=== PATIENT | male | born 1930 | race Caucasian/White ===

== ENCOUNTER 2017-06-12 18:34 | Inpatient (IN) | payer MEDICARE, BC ==
[2017-06-12] MEDS ORDERED: Diphth/Teta/Acell Pertusis* 0.5 ML VIAL ** FOR 6 WKS TO 7 YRS OLD IM ONE (19:40)
[2017-06-12 20:40] LABS: Albumin 3.8 g/dL (3.2-5.2); BUN/Creatinine Ratio 33.9 (8-20); Calcium 9.1 mg/dL (8.6-10.3); EGFR African American 177.9 (>60); EGFR Non-African American 138.3 (>60); Globulin 2.7 g/dL (2-4); Potassium 3.9 mmol/L (3.5-5.0); Total Bilirubin 0.9 mg/dL (0.2-1.0); Total Protein 6.5 g/dL (6.4-8.9)
[2017-06-12 20:41] LABS: Troponin I 0.01 ng/mL (<0.04)
--- NOTE | 2017-06-12 20:56 | RAD ---
INDICATION: Head injury. COMPARISON: There are no prior studies available for comparison. TECHNIQUE: Contiguous axial sections of the brain were obtained from the skull base to the vertex without contrast. FINDINGS: The ventricles, cisterns and sulci are enlarged consistent with age-related atrophy. No significant focal abnormality or mass effect is seen. There is no evidence for hemorrhage. No significant focal osseous abnormality is seen. The visualized portion of the paranasal sinuses and mastoid air cells appear clear. IMPRESSION: NO EVIDENCE FOR ACUTE INTRACRANIAL ABNORMALITY.
[2017-06-12 21:14] LABS: Hematocrit 32 % (42-52); Hemoglobin 10.1 g/dl (14.0-18.0); Mean Corpuscular HGB Conc 32 g/dl (31-36); Mean Corpuscular Hemoglobin 29 pg (27-31); Mean Corpuscular Volume 90 fL (80-94); Mean Platelet Volume 10 um3 (7.4-10.4); Red Blood Count 3.52 10^6/ul (4.0-5.4); Red Cell Distribution Width 13 % (10.5-15); White Blood Count 11.5 10^3/ul (3.5-10.8)
--- NOTE | 2017-06-12 21:15 | RAD ---
INDICATION: Trauma bilateral hip pain. COMPARISON: There are no prior studies available for comparison. TECHNIQUE: An AP view of the pelvis and frontal and lateral views of both hips were obtained. FINDINGS: The bones are normal alignment. No fracture is seen. 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 IMPRESSION: NO EVIDENCE FOR FRACTURE, IF THE PATIENT'S SYMPTOMS PERSIST RECOMMEND FOLLOW-UP IMAGING.
--- NOTE | 2017-06-12 21:17 | RAD ---
INDICATION: Left femur injury. TECHNIQUE: 2 views of the left femur were obtained. FINDINGS: The bones are normal alignment. No fracture is seen. IMPRESSION: NO EVIDENCE FOR FRACTURE.
[2017-06-12] MEDS ORDERED: NS 0.9% 1000 ML* 1,000 ML IV ONE (21:38)
--- NOTE | 2017-06-12 22:21 | RAD ---
INDICATION: Right hip fracture. COMPARISON: Comparison is made with a prior x-ray study of the hips of the same date. TECHNIQUE: Contiguous axial sections were obtained through the pelvis without intravenous or oral contrast. Images were reconstructed in the coronal and sagittal planes. FINDINGS: The bones are osteoporotic. There is a comminuted fracture of the left acetabulum. The fracture extends through the anterior and medial queen. There is slight medial displacement of the medial wall. There is focal increased density along the medial aspect of the acetabulum consistent with a hematoma in an extraperitoneal location measuring 5.7 x 2.6 cm in size. This causes mild mass effect on the urinary bladder. There also appears to be a hairline nondisplaced fracture of the left inferior pubic ramus. The femurs appear intact. The visualized portion of the small bowel and colon appear nondistended. There appear to be small calcified gallstones visualized in the inferior portion of the gallbladder. No significant enlarged pelvic or renal lymph nodes are seen. No free intraperitoneal air or fluid is seen. IMPRESSION: 1. COMMINUTED DISPLACED FRACTURE OF THE LEFT ACETABULUM. 2. NONDISPLACED FRACTURE OF THE LEFT INFERIOR PUBIC RAMUS. 3. SMALL PELVIC HEMATOMA. 4. CHOLELITHIASIS.
--- NOTE | 2017-06-12 23:28 | ED ---
Inga Skinner SooYoung, scribed for Leroy Toney on 06/12/17 at 1926 . Lower Extremity - HPI Summary HPI Summary: An 87 y/o M presents to ED after a fall onset approximately 1030. Associated sx : hip pain L worse than R, multiple ecchymosis to bilat UE, lac to LUE at elbow , lac to RUE at elbow. Denies CP, backpain. Pt did hit his head but denies LOC. Pt lives with , and his son lives nearby. Son states pt's balance has been a little worse than normal recently. Last tetanus is unknown. 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 Mechanism Of Injury: Fall From A Standing Position Onset of Pain: Post Accident, Prior to Arrival Onset/Duration: Still Present Severity Initially: Moderate Severity Currently: Severe Pain Intensity: 10 Pain Scale Used: 0-10 Numeric Timing: Constant Location: Is Discrete @ - hips Associated Signs And Symptoms: Positive: Bruising, Other - lac to bilat elbows - Allergies/Home Medications Allergies/Adverse Reactions: Allergies Allergy/AdvReac Type Severity Reaction Status Date / Time No Known Allergies Allergy Verified 06/12/17 19:15 Home Medications: Home Medications Albuterol HFA INHALER* [Ventolin HFA Inhaler*] 2 puff INH Q4H PRN 06/12/17 [ History Confirmed 06/12/17] Ibuprofen-Diphenhydramine Citr [Advil Pm] 1 tab PO DAILY PRN 06/12/17 [History Confirmed 06/12/17] Ipratropium 0.5MG/2.5ML NEB* [Atrovent 0.5 MG NEB.MALENA*] 0.5 mg INH Q6H PRN 06/12 [History Confirmed 06/12/17] PMH/Surg Hx/FS Hx/Imm Hx Previously Healthy: No Respiratory History: Reports: Hx Chronic Obstructive Pulmonary Disease (COPD), Other Respiratory Problems/Disorders - COPD,JIGNESH COMPLEX- LEFT LUNG. RT PNEUMONIA 12/2016 Sensory History: Reports: Hx Cataracts, Hx Contacts or Glasses - GLASSES, Hx Hearing Aid - BILATERAL Opthamlomology History: Reports: Hx Cataracts, Hx Contacts or Glasses - GLASSES - Surgical History Surgery Procedure, Year, and Place: CATARACTS REMOVED [place]IL[place] [facility] [place]ERNIA [place]PAIR- [facility] [place]. APPENDECTOMY-. DEVIATED SEPTUM X 2 Hx Anesthesia Reactions: No - Immunization History Date of Tetanus Vaccine: utd Date of Influenza Vaccine: utd Infectious Disease History: No Infectious Disease History: Denies: Traveled Outside the [place] in Last 30 Days - Family History Known Family History: Negative: Other - neg: anaesthesia reaction - Social History Occupation: Retired Lives: With Family Alcohol Use: Daily Alcohol Amount: 1 GLASS OF WINE WITH DINNER Hx Substance Use: No Substance Use Type: Reports: None Hx Tobacco Use: Yes Smoking Status (MU): Light Every Day Tobacco Smoker Amount Used/How Often: PIPE X 70 YEARS Review of Systems Negative: Fever Negative: Chest Pain Positive: Arthralgia - bilat hip pain. Negative: Other - neg: leticia pain Positive: Bruising - bilat UE, Other - lac to bilat elbows All Other Systems Reviewed And Are Negative: Yes Physical Exam Triage Information Reviewed: Yes Vital Signs On Initial Exam: Initial Vitals Temp Pulse Resp BP Pulse Ox 99.3 F 75 25 150/62 94 06/12/17 19:05 06/12/17 19:05 06/12/17 19:05 06/12/17 19:05 06/12/17 19:05 Vital Signs Reviewed: Yes Appearance: Positive: Well-Appearing, No Pain Distress Skin: Positive: Warm, Skin Color Reflects Adequate Perfusion, Dry, Other - Lac to L elbow approx 4cm; Lac to R forearm approx 3cm Head/Face: Positive: Normal Head/Face Inspection Eyes: Positive: EOMI, THA ENT: Positive: Normal ENT inspection Neck: Positive: Supple, Nontender Respiratory/Lung Sounds: Positive: Clear to Auscultation, Breath Sounds Present Cardiovascular: Positive: RRR, Pulses are Symmetrical in both Upper and Lower Extremities Abdomen Description: Positive: Nontender, Soft Bowel Sounds: Positive: Present Musculoskeletal: Positive: Other - Tenderness to pelvis Neurological: Positive: Normal, Sensory/Motor Intact, Alert, Oriented to Person Place, Time - Jonathan Coma Scale Coma Scale Total: 15 Diagnostics - Vital Signs Vital Signs Temp Pulse Resp BP Pulse Ox 06/12/17 19:11 99.3 F 76 23 137/29 95 06/12/17 19:05 99.3 F 75 25 150/62 94 - Laboratory Lab Results: Lab Results 06/12/17 06/12/17 06/12/17 Range/Units 20:12 20:12 21:08 WBC 11.5 H (3.5-10.8) 10^3/ul RBC 3.52 L (4.0-5.4) 10^6/ul Hgb 10.1 L (14.0-18.0) g/dl Hct 32 L (42-52) % MCV 90 (80-94) fL MCH 29 (27-31) pg MCHC 32 (31-36) g/dl RDW 13 (10.5-15) % Plt Count 151 (150-450) 10^3/ul MPV 10 (7.4-10.4) um3 Neut % (Auto) 87.4 H (38-83) % Lymph % (Auto) 4.4 L (25-47) % Baxter % (Auto) 7.9 (1-9) % Eos % (Auto) 0 (0-6) % Baso % (Auto) 0.3 (0-2) % Absolute Neuts (auto) 10.0 H (1.5-7.7) 10^3/ul Absolute Lymphs (auto) 0.5 L (1.0-4.8) 10^3/ul Absolute Monos (auto) 0.9 H (0-0.8) 10^3/ul Absolute Eos (auto) 0 (0-0.6) 10^3/ul Absolute Basos (auto) 0 (0-0.2) 10^3/ul Absolute Nucleated RBC 0.01 10^3/ul Nucleated RBC % 0.1 INR (Anticoag Therapy) 0.97 (0.89-1.11) APTT 31.6 (26.0-36.3) seconds Sodium 129 L (133-145) mmol/L Potassium 3.9 (3.5-5.0) mmol/L Chloride 95 L (101-111) mmol/L Carbon Dioxide 28 (22-32) mmol/L Anion Gap 6 (2-11) mmol/L BUN 19 (6-24) mg/dL Creatinine 0.56 L (0.67-1.17) mg/dL Est GFR ( Amer) 177.9 (>60) Est GFR (Non-Af Amer) 138.3 (>60) BUN/Creatinine Ratio 33.9 H (8-20) Glucose 151 H (70-100) mg/dL Calcium 9.1 (8.6-10.3) mg/dL Magnesium 2.0 (1.9-2.7) mg/dL Total Bilirubin 0.90 (0.2-1.0) mg/dL AST 19 (13-39) U/L ALT 17 (7-52) U/L Alkaline Phosphatase 61 (34-104) U/L Troponin I 0.01 (<0.04) ng/mL Total Protein 6.5 (6.4-8.9) g/dL Albumin 3.8 (3.2-5.2) g/dL Globulin 2.7 (2-4) g/dL Albumin/Globulin Ratio 1.4 (1-3) Result Diagrams: 06/12/17 21:08 06/12/17 20:12 Lab Statement: Any lab studies that have been ordered have been reviewed, and results considered in the medical decision making process. - Radiology HIPS XR Xray Interpretation: No Acute Changes - IMPRESSION: No evidence for fx. If sx persist, recommend follow-up imaging. Radiology Interpretation Completed By: Radiologist L Femur XR Xray Interpretation: No Acute Changes - IMPRESSION: No evidence for fx. Radiology Interpretation Completed By: Radiologist - CT BRAIN CT CT Interpretation: No Acute Changes - IMPRESSION: No evidence for acute intracranial abnormality. CT Interpretation Completed By: Radiologist PELVIS CT Interpretation: Positive (See Comments) - IMPRESSION: 1. COMMINUTED DISPLACED FRACTURE OF THE LEFT ACETABULUM. 2. NONDISPLACED FRACTURE OF THE LEFT INFERIOR PUBIC RAMUS. 3. SMALL PELVIC HEMATOMA. 4. CHOLELITHIASIS. CT Interpretation Completed By: Radiologist - EKG 2003 Cardiac Rate: NL - 74bpm EKG Rhythm: Sinus Rhythm Re-Evaluation - Re-Evaluation 1 Re-Evaluation Time: 23:09 Change: Unchanged Comment: Discussing results and consults with pt and family. Pt is OK with admission. Lower Extremity Course/Dx - Course Course Of Treatment: Pt is an 87 y/o M presenting after a fall onset approximately 1030. Associated sx: hip pain L worse than R, multiple ecchymosis to bilat UE, lac to LUE at elbow, lac to RUE at elbow. Denies CP, backpain. Pt did hit his head but denies LOC. Pt lives with , and his son lives nearby. Son states pt's balance has been a little worse than normal recently. Last tetanus is uknown. Pt given Tdap in ED. Blood work and lab results are without significant abnormality. Imaging were all negative for acute findings, except PELVIC CT shows "1. COMMINUTED DISPLACED FRACTURE OF THE LEFT ACETABULUM. 2. NONDISPLACED FRACTURE OF THE LEFT INFERIOR PUBIC RAMUS. 3. SMALL PELVIC HEMATOMA. 4. CHOLELITHIASIS.". After consulting with ortho and hospitalist, will Admit pt. - Diagnoses Provider Diagnoses: Fracture of left pelvis, Hyponatremia, Weakness, Falls, extremity lacerations, Hip fracture, Closed left hip fracture - Physician Notifications Discussed Care Of Patient With: Geoffrey Morales - ortho Time Discussed With Above Provider: 22:44 Instructed by Provider To: Other - Will review and call back. Discharge - Discharge Plan Condition: Stable Disposition: ADMITTED TO [facility] Referrals: Rosi Montiel MD [Primary Care Provider] - Consult Consult: 224: Consult with Dr. Laughlin, hospitalist Wants to know what Dr. Morales recommends. 2307: Consult with Dr. Morales, ortho Recommends admission, will see pt tomorrow. 2323: consult with Dr. Laughlin, hospitalist Will accept for admission. The documentation as recorded by the Inga harding SooYoung accurately reflects the service I personally performed and the decisions made by me, Leroy Toney.
[2017-06-12] MEDS ORDERED: NS 0.9% 1000 ML* 1,000 ML IV SCH (23:45)
[2017-06-12] MEDS ORDERED: Morphine INJ* 2 MG/ML 1 ML SYRINGE IV PRN (23:49)
[2017-06-12] MEDS ORDERED: Ondansetron INJ* 2 MG/ML VIAL IV PRN (23:50)
[2017-06-13 06:45] LABS: Hematocrit 28 % (42-52); Hemoglobin 9.2 g/dl (14.0-18.0); Mean Corpuscular HGB Conc 34 g/dl (31-36); Mean Corpuscular Hemoglobin 30 pg (27-31); Mean Corpuscular Volume 89 fL (80-94); Mean Platelet Volume 9 um3 (7.4-10.4); Red Blood Count 3.09 10^6/ul (4.0-5.4); Red Cell Distribution Width 13 % (10.5-15)
[2017-06-13 06:59] LABS: BUN/Creatinine Ratio 31.6 (8-20); EGFR African American 174.3 (>60); EGFR Non-African American 135.5 (>60); Potassium 3.8 mmol/L (3.5-5.0)
[2017-06-13] MEDS: Ipratropium 0.5MG/2.5ML NEB* 0.5 MG/2.5 ML NEB.SOLN INH PRN ×2 (07:32→16:33)
[2017-06-13] MEDS: Clarithromycin TAB* 500 MG PO SCH ×2 (07:35→21:18)
--- NOTE | 2017-06-13 09:34 | RAD ---
HISTORY: COPD COMPARISONS: January 13, 2017 VIEWS:1: Single frontal portable view of the chest at 9:50 AM FINDINGS: LINES AND TUBES: None. CARDIOMEDIASTINAL SILHOUETTE: The cardiomediastinal silhouette is normal for portable technique. PLEURA: The costophrenic angles are sharp. No pleural abnormalities are noted. LUNG PARENCHYMA: There is extensive emphysematous change with bullous change of the lung apices ABDOMEN: The upper abdomen is clear. There is no subphrenic gas. BONES AND SOFT TISSUES: No bone or soft tissue abnormalities are noted. IMPRESSION: EMPHYSEMA
--- NOTE | 2017-06-13 09:48 | HP ---
CC: Dr. Rosi Montiel; Dr. Geoffrey Morales ADMISSION HISTORY AND PHYSICAL: DATE OF ADMISSION: 06/12/17 CHIEF COMPLAINT: Left hip pain. HISTORY OF PRESENT ILLNESS: Mr. De Dios is an 87-year-old man who sustained a fall in his home around 10:30 this morning. He states he was closing a sliding glass door and turned around quickly and fell. He had no loss of consciousness , but he also could not explain how he fell. He did not strike his head, but he did bruise both of his upper arms and lacerated his left elbow. The patient presented to the emergency department for evaluation. He had initial x-rays which were negative for fracture, but a pelvic CT showed acetabular fracture on the left. So, I was asked to see the patient for admission. The patient's son told the ER doctor that the patient's balance has been a little worse than normal recently. In the ER, the patient received treatment for his ecchymosis and lacerations in both elbows. We were asked to admit the patient. PAST MEDICAL HISTORY: COPD and current tobacco abuse. He has a history of JG complex in the past about 8 or 9 years ago. PAST SURGICAL HISTORY: Left inguinal hernia repair in 2013, right inguinal hernia repair in the more distant past; appendectomy and vasectomy. MEDICATIONS: On admission are: 1. Ventolin inhaler 2 puffs q.4 hours p.r.n. 2. Clarithromycin 500 mg p.o. b.i.d. 3. Ozol-ebn-sqbvnjy ibuprofen/diphenhydramine as needed. 4. Ipratropium nebulizer. ALLERGIES: None. FAMILY HISTORY: Notable for both parents having had heart disease. Mother had diabetes. 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 He is . He has 5 children. He still smokes a pipe. He drinks wine about one or two a day with dinner. No recreational drugs. REVIEW OF SYSTEMS: The patient denies any fevers, weight loss, or anorexia. The patient denies any chest pain or palpitations. The patient reports a chronic cough and shortness of breath. Remainder of the 14-point review of systems is negative other than mentioned in the HPI. PHYSICAL EXAMINATION GENERAL: He is an elderly man, in no acute distress, wearing a Ventimask. VITAL SIGNS: Temperature is 37.4, pulse 66, respirations 20, blood pressure 147 /56, O2 sat is 100% on 2 L. HEENT: Is normal. His oropharynx is moist. No lesions. NECK: No adenopathy, no carotid bruit, or thyromegaly. LUNGS: Has wheezes scattered throughout and diminished breath sounds throughout. HEART: Regular rate and rhythm without murmurs, rubs, or gallops. ABDOMEN: Soft, nontender. Positive bowel sounds. No hepatosplenomegaly. EXTREMITIES: No peripheral edema. Tenderness at the left hip. His vascular exam is normal for positive dorsalis pedis pulses. SKIN EXAM: Normal for ecchymosis in both elbows which are bandaged at this time. NEUROLOGIC: Cranial nerves II through XII are intact. Motor strength is 5/5 throughout. Deep tendon reflexes are symmetric. LABORATORY DATA: Sodium 129, potassium 3.9, chloride 95, bicarb 28, BUN 19, creatinine 0.56, glucose 151, calcium 9.1. White count 11.5, hemoglobin 10.1, hematocrit 32%, and platelets 151. INR 0.97. EKG shows normal sinus rhythm, normal axis, no ischemic ST or T-wave changes. Head CT is negative for infarct or contusion. Left femur x-ray and left hip x- ray, negative for fracture. CT pelvis shows left acetabular and left inferior pubic rami fracture. ASSESSMENT AND PLAN: An 87-year-old man with left acetabular and inferior pubic rami fracture, will likely require orthopedic repair. We will consult Dr. Morales about taking the patient to the operating room. The patient had a good performance status prior to the fall where he was able to work in the yard without any angina and minimal shortness of breath. He is at low risk of cardiopulmonary complications for the planned surgery and is advised to proceed as soon as reasonably possible. For chronic obstructive pulmonary disease, this is not currently exacerbated. So he simply should continue his inhalers as needed. For history of mycobacterium avium intracellulare complex, he should continue his clarithromycin twice a day as prophylaxis. I discussed code status. The patient says he is do not resuscitate, but would allow intubation if necessary for surgery. A MOLST form was filled out with the patient. For DVT prophylaxis, he will have sequential compression devices at this point and after surgery, he should have Lovenox and Coumadin until he is fully ambulatory. [id number]/CPS #: [id number] MTDD
[2017-06-13] MEDS: PTO:Albuterol HFA INHALER* 8 gm MDI INH PRN (15:26)
--- NOTE | 2017-06-13 15:49 | PN ---
Subjective Date of Service: 06/13/17 Interval History: Pt c/o left hip pain only when moving it Objective Active Medications: Albuterol (Ventolin Hfa Inhaler*) 2 puff INH Q4H PRN PRN Reason: SOB/WHEEZING Last Admin: 06/13/17 15:26 Dose: 2 puff Clarithromycin (Biaxin Tab*) 500 mg PO BID GULSHAN Last Admin: 06/13/17 07:35 Dose: 500 mg Ipratropium [place] (Atrovent 0.5 Mg Neb.Virgie*) 0.5 mg INH Q6H PRN PRN Reason: SOB/WHEEZING Last Admin: 06/13/17 07:32 Dose: 0.5 mg Morphine Sulfate (Morphine Inj (Syringe)*) 2 mg IV Q2H PRN PRN Reason: PAIN Ondansetron HCl (Zofran Inj*) 4 mg IV Q6H PRN PRN Reason: NAUSEA Vital Signs 06/13/17 06/13/17 06/13/17 00:43 00:55 01:00 Temperature 99.0 F 99.0 F Pulse Rate 109 108 Respiratory 18 18 Rate Blood Pressure 174/86 174/86 (mmHg) O2 Sat by Pulse 90 90 Oximetry 06/13/17 06/13/17 06/13/17 01:39 03:33 07:34 Temperature 98.9 F 97.5 F Pulse Rate 66 71 Respiratory 18 20 15 Rate Blood Pressure 147/56 133/54 (mmHg) O2 Sat by Pulse 100 92 Oximetry 06/13/17 06/13/17 07:52 11:16 Temperature 97.9 F Pulse Rate 78 Respiratory 16 15 Rate Blood Pressure 131/55 (mmHg) O2 Sat by Pulse 100 Oximetry Oxygen Devices in Use Now: None Appearance: 87 yo M in nAD, AAOx3 Eyes: No Scleral Icterus, PERRLA Ears/Nose/Mouth/Throat: NL Teeth, Lips, Gums, Mucous Membranes Moist Neck: NL Appearance and Movements; NL JVP, Trachea Midline Respiratory: Symmetrical Chest Expansion and Respiratory Effort, Clear to Auscultation Cardiovascular: NL Sounds; No Murmurs; No JVD, RRR Abdominal: NL Sounds; No Tenderness; No Distention Lymphatic: No Cervical Adenopathy Extremities: No Edema, No Clubbing, Cyanosis Skin: No Rash or Ulcers, No Nodules or Sclerosis Neurological: Alert and Oriented x 3, NL Muscle Strength and Tone Result Diagrams: 06/13/17 06:28 06/13/17 06:37 Additional Lab and Data: Lab Results 06/12/17 06/12/17 06/12/17 Range/Units 20:12 20:12 21:08 WBC 11.5 H (3.5-10.8) 10^3/ul RBC 3.52 L (4.0-5.4) 10^6/ul Hgb 10.1 L (14.0-18.0) g/dl Hct 32 L (42-52) % MCV 90 (80-94) fL MCH 29 (27-31) pg MCHC 32 (31-36) g/dl RDW 13 (10.5-15) % Plt Count 151 (150-450) 10^3/ul MPV 10 (7.4-10.4) um3 Neut % (Auto) 87.4 H (38-83) % Lymph % (Auto) 4.4 L (25-47) % Mobile % (Auto) 7.9 (1-9) % Eos % (Auto) 0 (0-6) % Baso % (Auto) 0.3 (0-2) % Absolute Neuts (auto) 10.0 H (1.5-7.7) 10^3/ul Absolute Lymphs (auto) 0.5 L (1.0-4.8) 10^3/ul Absolute Monos (auto) 0.9 H (0-0.8) 10^3/ul Absolute Eos (auto) 0 (0-0.6) 10^3/ul Absolute Basos (auto) 0 (0-0.2) 10^3/ul Absolute Nucleated RBC 0.01 10^3/ul Nucleated RBC % 0.1 INR (Anticoag Therapy) 0.97 (0.89-1.11) APTT 31.6 (26.0-36.3) seconds Sodium 129 L (133-145) mmol/L Potassium 3.9 (3.5-5.0) mmol/L Chloride 95 L (101-111) mmol/L Carbon Dioxide 28 (22-32) mmol/L Anion Gap 6 (2-11) mmol/L BUN 19 (6-24) mg/dL Creatinine 0.56 L (0.67-1.17) mg/dL Est GFR ( Amer) 177.9 (>60) Est GFR (Non-Af Amer) 138.3 (>60) BUN/Creatinine Ratio 33.9 H (8-20) Glucose 151 H (70-100) mg/dL Calcium 9.1 (8.6-10.3) mg/dL Magnesium 2.0 (1.9-2.7) mg/dL Total Bilirubin 0.90 (0.2-1.0) mg/dL AST 19 (13-39) U/L ALT 17 (7-52) U/L Alkaline Phosphatase 61 (34-104) U/L Troponin I 0.01 (<0.04) ng/mL Total Protein 6.5 (6.4-8.9) g/dL Albumin 3.8 (3.2-5.2) g/dL Globulin 2.7 (2-4) g/dL Albumin/Globulin Ratio 1.4 (1-3) Assess/Plan/Problems-Billing Assessment: 87 yo M with h/o cOPD (onm 02 at night at 2.5 L) and MAC infection ( on clarithromycin) presents s/p mechanical fall with left hip and pelvis fracture - Patient Problems (1) Closed left acetabular fracture Comment: As d/w Dr. Morales pt can either be NWB on left leg for 6 weeks, or decide to undergo a total hip arthloplasty sometime this week. For now cont NWB status on left leg (2) Mycobacterium avium complex colonization Comment: cont clarithromycin as outpatient (3) COPD (chronic obstructive pulmonary disease) Comment: not in exacerbation cont 02 at night and home inhalers (4) Pelvic fracture Comment: noted on CT as well as small pelvic hematoma. conservative tx. (5) Normocytic anemia Comment: doubt small pelvic hematoma is the etiology will order iron studies (6) Hyponatremia Comment: suspect prerenal cont gentle IVF (7) DVT prophylaxis Comment: heparin sc. Aware of small pelvic hematoma. For now risk of DVT and PE due to immobilty is significant an the hematoma is traumatic Status and Disposition: inpatient
[2017-06-13] MEDS ORDERED: oxyCODONE TAB* 5 MG TAB PO PRN (16:19)
[2017-06-13] MEDS: Acetaminophen TAB* 325 MG PO PRN (19:18)
[2017-06-13] MEDS: Heparin VIAL(*) 5000 UNITS/ML VIAL (FIVE THOUSAND) SUBCUT SCH (21:18)
--- NOTE | 2017-06-13 23:34 | CONS ---
CONSULTATION REPORT: DATE OF CONSULT: 06/13/17 REASON FOR CONSULT: Left acetabulum fracture. HISTORY OF PRESENT ILLNESS: The patient is an 87-year-old man, who fell at home on 06/12/17, one day ago and presented to the emergency room at [facility] where CT scan of the pelvis demonstrated a left acetabulum fracture. The patient was admitted to the hospitalist service and Orthopedic Surgery was consulted. The patient lives with his , who has some issues regarding immunocompromise , preventing her from coming to the hospital. The patient fell around 10:30 a.m. on 06/12/17. The patient told the hospitalist attending that he was closing a sliding glass door, turned quickly and fell. The patient had no loss of consciousness, but could not explain how he fell. The patient denied hitting his head and denied head pain at this time. He acknowledged that he injured his upper extremities and points to some bruises and dressings about the left elbow. The patient presented to the emergency department, where x-ray was negative for fracture, but CT showed left acetabular fracture. The patient's laceration, left elbow, skin was treated with a dry sterile dressing. PAST MEDICAL HISTORY: COPD, history of JG complex 8 or 9 years ago. PAST SURGICAL HISTORY: Left inguinal hernia repair, right inguinal hernia repair, appendectomy, vasectomy. MEDICATIONS: 1. Ventolin inhaler. 2. Clarithromycin 500 mg p.o. b.i.d. 3. Ibuprofen/diphenhydramine p.r.n. 4. Ipratropium nebulizer. ALLERGIES: No known drug allergies. 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 REVIEW OF SYSTEMS: The patient denies fevers, sweats, chills. Denies chest pain or palpitations. The patient does describe chronic cough and some shortness of breath, unchanged from normal. PHYSICAL EXAM: Vital sings at 3:40 p.m. today; temperature 99.1 degrees Fahrenheit, heart rate 83, blood pressure 132/53, respirations 16, and O2 saturation 94% on room air. No acute distress. The patient is poorly alert and oriented. During our conversation, he referred to his being just outside the room in the kitchen. The patient has appropriate mood and affect. The patient's upper extremities seem appropriately coordinated for age. He is somewhat reluctant to move lower extremities. Gait was not assessed as the patient was supine in a bed on the hospital floor. The patient has some bruises, acute versus chronic bilateral forearms (the patient's reports that he has been falling much recently). The patient has a dry sterile dressing over the posterior aspect of the left and right elbow. Left lower extremity exam reveals it to be neurovascularly intact distally. No significant soft tissue swelling or ecchymosis about the left hip. No open skin. The patient has no pain within limited range of motion passively of the left hip. I was able to comfortably flex him 0 to 60 degrees of flexion, 20 degrees of internal and 10 degrees of external rotation of the hip without significant discomfort. Neurovascularly intact distally. Compartments are soft , thigh and lower leg. DIAGNOSTIC STUDIES/LAB DATA: Hematocrit 28 today versus 32 yesterday, June 12. Chem 10 significant sodium of 131, creatinine of 0.57, glucose of 115. Imaging: X-rays of the left hip, 2+ views from June 12 were reviewed and showed no clear fracture. There is some at least mild narrowing of bilateral hip joint spaces. CT scan of the pelvis from June 12 demonstrates a fracture of the anterior and middle left acetabulum. I visualized as much as 5 mm of displacement and diastasis of fracture fragments about the anteromedial acetabulum as well as the superior weight bearing dome. I also reviewed this CT scan later with the radiologist on-call, Dr. Don, who agreed about the approximately 5 mm of displacement diastasis of the fracture of the acetabulum. Reexamination of the left hip x-rays demonstrates 4 views, that do show asymmetry of the joint spacings compared to contralateral right hip. No obvious fracture lines, although some focal asymmetry appear suspicious for fracture. ASSESSMENT: Left acetabulum fracture, mildly displaced, up to 5 mm. PLAN: 1. I spoke to the and the (by telephone), both earlier and in the day before I completed my full assessment, and at the conclusion of the day after having completed my full assessment. 2. The patient has a mildly displaced acetabular fracture. Usually, 2 to 3 mm of displacement would be an indication to operate, with the goal of avoiding hip joint arthritis. The calculus on this changes somewhat in an 87-year-old man, with some medical problems, COPD, and some functional limitations including possibly some degree of confusion versus early dementia. 5mm becomes more acceptable. 3. Given that the treatment for this injury would be a total hip arthroplasty and the treatment for future pain caused by osteoarthritis would be a total hip arthroplasty, surgically, it seems reasonable proceeding with nonoperative treatment. 4. The downside to nonoperative treatment is it limits the patient's ambulation and mobility, predisposing him to medical problems, such as blood clot, decubitus ulcer, pneumonia, atelectasis. However, patients with acetabular fracture tend to be much more mobile than those with hip fractures such as femoral neck or intertrochanteric, proximal, femur fracture in my experience. It is my hope that the patient will be able to sit up, and move from bed to chair, because his hip and acetabulum should not hurt much when he is not moving that left hip joint. 5. Discussed with the patient and his . I am happy to discuss with any other family members. 6. Given the significance of the acetabulum fracture, should the patient need a total hip arthroplasty for acetabulum fracture, the patient would be referred to a major trauma center. 7. I would like physical therapy to see the patient and work with him, nonweightbearing or touch down weightbearing, with him, activity as tolerated without restriction. My hope is that we can get the patient mobile enough to avoid any medical complications. 8. The patient can be discharged home versus to a retirement depending on support at home. It sounds as though a retirement may be required given some limitations on support at home. 9. I am happy to answer any questions that the hospitalist service may have for me. They seem to be under the impression that surgery was definitely intended, but this was certainly never the case. 10. Anticoagulate with Lovenox 40mg SQ daily x 4 weeks please to prevent DVT/ PE. 11. Follow up with me in clinic in ~ 14 days for x-ray imaging and clinical exam. [id number]/[facility] #: [id number] TAMAR
[2017-06-14] MEDS: Acetaminophen TAB* 325 MG PO PRN ×2 (00:14→06:00)
[2017-06-14] MEDS: PTO:Albuterol HFA INHALER* 8 gm MDI INH PRN ×3 (05:06→15:51)
[2017-06-14] MEDS: Heparin VIAL(*) 5000 UNITS/ML VIAL (FIVE THOUSAND) SUBCUT SCH ×3 (06:01→21:32)
[2017-06-14 07:10] LABS: Hematocrit 29 % (42-52); Hemoglobin 9.8 g/dl (14.0-18.0); Mean Corpuscular HGB Conc 33 g/dl (31-36); Mean Corpuscular Hemoglobin 30 pg (27-31); Mean Corpuscular Volume 89 fL (80-94); Mean Platelet Volume 10 um3 (7.4-10.4); Red Blood Count 3.29 10^6/ul (4.0-5.4); Red Cell Distribution Width 13 % (10.5-15); White Blood Count 9.1 10^3/ul (3.5-10.8)
[2017-06-14 07:23] LABS: Calcium 9.2 mg/dL (8.6-10.3); EGFR African American 149.8 (>60); EGFR Non-African American 116.5 (>60); Potassium 3.4 mmol/L (3.5-5.0)
[2017-06-14] MEDS: Clarithromycin TAB* 500 MG PO SCH ×2 (08:00→20:33)
[2017-06-14] MEDS: Ipratropium 0.5MG/2.5ML NEB* 0.5 MG/2.5 ML NEB.SOLN INH PRN (08:04)
[2017-06-14 08:19] LABS: Ferritin 143.5 ng/mL (24-336)
[2017-06-14 08:22] LABS: Folate 12.19 ng/mL (>3.99)
[2017-06-14] MEDS ORDERED: NICOTINE 4 MG MT PRN (13:53)
[2017-06-14] MEDS: Acetaminophen TAB* 325 MG PO SCH ×3 (14:40→21:32)
--- NOTE | 2017-06-14 16:42 | PN ---
Subjective Date of Service: 06/14/17 Interval History: No pain at rest. No new c/o, seems content. Objective Active Medications: Acetaminophen (Tylenol Tab*) 650 mg PO Q4H PRN PRN Reason: FEVER/PAIN Last Admin: 06/14/17 06:00 Dose: 650 mg Acetaminophen (Tylenol Tab*) 650 mg PO QID [facility] Last Admin: 06/14/17 14:40 Dose: 650 mg Albuterol (Ventolin Hfa Inhaler*) 2 puff INH Q4H PRN PRN Reason: SOB/WHEEZING Last Admin: 06/14/17 15:51 Dose: 2 puff Clarithromycin (Biaxin Tab*) 500 mg PO BID [facility] Last Admin: 06/14/17 08:00 Dose: 500 mg Heparin Sodium (Porcine) (Heparin Vial(*)) 5,000 units SUBCUT Q8HR [facility] Last Admin: 06/14/17 14:41 Dose: 5,000 units Ipratropium Dozier (Atrovent 0.5 Mg Neb.Virgie*) 0.5 mg INH Q6H PRN PRN Reason: SOB/WHEEZING Last Admin: 06/14/17 08:04 Dose: 0.5 mg Nicotine Polacrilex (Nicotine Lozenge*) 4 mg MT Q2H PRN PRN Reason: CRAVINGS Ondansetron HCl (Zofran Inj*) 4 mg IV Q6H PRN PRN Reason: NAUSEA Oxycodone HCl (Roxycodone Tab*) 5 mg PO Q4H PRN PRN Reason: PAIN Vital Signs 06/13/17 06/13/17 06/13/17 19:10 20:09 23:05 Temperature 99.4 F Pulse Rate 80 76 Respiratory 18 21 20 Rate Blood Pressure 132/55 144/58 (mmHg) O2 Sat by Pulse 90 92 Oximetry 06/14/17 06/14/17 06/14/17 03:28 05:08 08:00 Temperature 98.2 F Pulse Rate 69 Respiratory 22 18 14 Rate Blood Pressure 135/55 (mmHg) O2 Sat by Pulse 94 98 Oximetry 06/14/17 06/14/17 06/14/17 08:16 11:25 13:41 Temperature 98.8 F 98.3 F Pulse Rate 69 72 78 Respiratory 14 13 Rate Blood Pressure 160/54 143/55 126/40 (mmHg) O2 Sat by Pulse 97 97 Oximetry 06/14/17 15:54 Temperature 97.5 F Pulse Rate 82 Respiratory 16 Rate Blood Pressure 112/49 (mmHg) O2 Sat by Pulse Oximetry Oxygen Devices in Use Now: None Appearance: Alert, partly up in bed. In good spirits. Looks comfortable. Eyes: No Scleral Icterus Respiratory: Symmetrical Chest Expansion and Respiratory Effort, Clear to Auscultation, Clear to Percussion Cardiovascular: NL Sounds; No Murmurs; No JVD, RRR, No Edema, - Extremities: No Edema, No Clubbing, Cyanosis, - Skin: No Rash or Ulcers, No Nodules or Sclerosis, - Neurological: Alert and Oriented x 3, NL Sensation Result Diagrams: 06/14/17 06:55 06/14/17 06:55 Additional Lab and Data: Lab Results 06/12/17 06/12/17 06/12/17 Range/Units 20:12 20:12 21:08 WBC 11.5 H (3.5-10.8) 10^3/ul RBC 3.52 L (4.0-5.4) 10^6/ul Hgb 10.1 L (14.0-18.0) g/dl Hct 32 L (42-52) % MCV 90 (80-94) fL MCH 29 (27-31) pg MCHC 32 (31-36) g/dl RDW 13 (10.5-15) % Plt Count 151 (150-450) 10^3/ul MPV 10 (7.4-10.4) um3 Neut % (Auto) 87.4 H (38-83) % Lymph % (Auto) 4.4 L (25-47) % [place] % (Auto) 7.9 (1-9) % Eos % (Auto) 0 (0-6) % Baso % (Auto) 0.3 (0-2) % Absolute Neuts (auto) 10.0 H (1.5-7.7) 10^3/ul Absolute Lymphs (auto) 0.5 L (1.0-4.8) 10^3/ul Absolute Monos (auto) 0.9 H (0-0.8) 10^3/ul Absolute Eos (auto) 0 (0-0.6) 10^3/ul Absolute Basos (auto) 0 (0-0.2) 10^3/ul Absolute Nucleated RBC 0.01 10^3/ul Nucleated RBC % 0.1 INR (Anticoag Therapy) 0.97 (0.89-1.11) APTT 31.6 (26.0-36.3) seconds Sodium 129 L (133-145) mmol/L Potassium 3.9 (3.5-5.0) mmol/L Chloride 95 L (101-111) mmol/L Carbon Dioxide 28 (22-32) mmol/L Anion Gap 6 (2-11) mmol/L BUN 19 (6-24) mg/dL Creatinine 0.56 L (0.67-1.17) mg/dL Est GFR ( Amer) 177.9 (>60) Est GFR (Non-Af Amer) 138.3 (>60) BUN/Creatinine Ratio 33.9 H (8-20) Glucose 151 H (70-100) mg/dL Calcium 9.1 (8.6-10.3) mg/dL Magnesium 2.0 (1.9-2.7) mg/dL Total Bilirubin 0.90 (0.2-1.0) mg/dL AST 19 (13-39) U/L ALT 17 (7-52) U/L Alkaline Phosphatase 61 (34-104) U/L Troponin I 0.01 (<0.04) ng/mL Total Protein 6.5 (6.4-8.9) g/dL Albumin 3.8 (3.2-5.2) g/dL Globulin 2.7 (2-4) g/dL Albumin/Globulin Ratio 1.4 (1-3) Microbiology and Other Data: Microbiology 06/14/17 04:50 Stool Occult Blood (DIMPLE) - Final Stool Assess/Plan/Problems-Billing Assessment: 87 yo M with h/o cOPD (onm 02 at night at 2.5 L) and 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 Morales pt can either be NWB on left leg for 6 weeks, or decide to undergo a total hip arthloplasty sometime this week. For now cont NWB status on left leg. Likely will need STR. (2) Mycobacterium avium complex Current Visit: Yes Status: Acute Code(s): A31.0 - PULMONARY MYCOBACTERIAL INFECTION SNOMED Code(s): 219400830 Comment: Continue clarithromycin. (3) COPD (chronic obstructive pulmonary disease) Current Visit: Yes Status: Acute Code(s): J44.9 - CHRONIC OBSTRUCTIVE PULMONARY DISEASE, UNSPECIFIED SNOMED Code(s): 60193976 Comment: not in exacerbation cont 02 at night and home inhalers Patient requests frequent inhalers, either can't remember getting last dose or is psychologically dependent on inhaler tx. (4) Normocytic anemia Current Visit: Yes Status: Acute Code(s): D64.9 - ANEMIA, UNSPECIFIED SNOMED Code(s): 599345019 Comment: doubt small pelvic hematoma is the etiology Iron studies equivocal, have ordered soluble transferrin receptor. Status and Disposition: inpatient
--- NOTE | 2017-06-14 16:46 | PN ---
Progress Note - Progress Note Date of Service: 06/14/17 Note: Additional diagnoses: hyponatremia, tobacco abuse.
[2017-06-15] MEDS: Heparin VIAL(*) 5000 UNITS/ML VIAL (FIVE THOUSAND) SUBCUT SCH ×3 (05:37→21:52)
[2017-06-15] MEDS: Clarithromycin TAB* 500 MG PO SCH ×2 (08:20→20:19)
[2017-06-15] MEDS: Acetaminophen TAB* 325 MG PO SCH ×4 (08:20→20:20)
[2017-06-15] MEDS: Ipratropium 0.5MG/2.5ML NEB* 0.5 MG/2.5 ML NEB.SOLN INH PRN (12:41)
--- NOTE | 2017-06-15 15:24 | PN ---
Progress Note - Progress Note Date of Service: 06/15/17 SOAP: Subjective: Pt with left hip acetabular fx, doing well with PT. Denies significant pain at rest, only if flexing at hip. Denies CP/SOB, calf pain, f/c Objective: Vitals: Temp Pulse Resp BP Pulse Ox 98.4 F 90 16 104/47 94 06/15/17 11:38 06/15/17 12:45 06/15/17 12:45 06/15/17 11:38 06/15/17 12:45 Gen: A&O x3, NAD at rest sitting in bed LLE: No significant ttp, pain with hip flexion. Calf soft, NT. Able to flex and extend at ankles and MTPs, N/V intact Assessment: Left hip acetabular fx Plan: Cont NWB LLE with walker and assist Dispo per medicine
--- NOTE | 2017-06-15 15:26 | PN ---
Progress Note - Progress Note Date of Service: 06/15/17 Note: Time spent on discharge 55 minutes
[2017-06-15] MEDS: PTO:Albuterol HFA INHALER* 8 gm MDI INH PRN (21:40)
[2017-06-16] MEDS: PTO:Albuterol HFA INHALER* 8 gm MDI INH PRN (02:55)
[2017-06-16] MEDS: Heparin VIAL(*) 5000 UNITS/ML VIAL (FIVE THOUSAND) SUBCUT SCH (06:11)
--- NOTE | 2017-06-16 08:40 | TRS ---
CC: Dr. Rosi Montiel; [facility] * DATE OF ADMISSION: 06/12/17 DATE OF TRANSFER: 06/16/17 This 87-year-old man presented with left hip pain. He fell about 10:30 in the morning on the day of admission at home. He lost his balance while closing a sliding glass door. There was no loss of consciousness. He bruised his upper arms and lacerated his left elbow, but did not strike his head. Initial x-rays in the emergency room were negative, but pelvic CT showed acetabular fracture on the left as well as a pubic ramus fracture. The patient was evaluated by Orthopedics. There was an option for surgery; but , given his comorbidities, it was felt the better course would be simply waiting for him to heal. He will be no weight bearing on his left leg for six weeks. His hospital course was uncomplicated. Pain control was adequate with scheduled acetaminophen as well as prn doses. He did show some confusion in time, probably from intermittent delirium. He's being transferred to [facility] for rehabilitation. FINAL DIAGNOSES: 1. Left acetabular and pelvic fracture. 2. Microbacterium avium infection. 3. Chronic obstructive pulmonary disease. 4. Normocytic anemia, soluble transferrin receptor is pending. 5. Tobacco use disorder. DISCHARGE MEDICATIONS: 1. Acetaminophen 650 mg qid, plus every 4 hours prn. 2. Nicotine lozenge 4 mg every 2 hours prn. 3. Clarithromycin 500 mg bid. 4. Ipratropium 0.5 mg every 6 hours by nebulizer prn. 5. Albuterol inhaler two puffs every 4 hours prn. [id number]/[facility] #: [id number] [facility]
[2017-06-16 09:34] VITALS: BP 152/51
[2017-06-16] MEDS: Acetaminophen TAB* 325 MG PO SCH (09:37)
[2017-06-16] MEDS: Clarithromycin TAB* 500 MG PO SCH (09:37)
== END 2017-06-16 10:45 | DRG 536 ==
LOC: ED 18:34 → SSU 23:47
PROVIDERS: ADMIT Internal Medicine; ATTEND Internal Medicine
DX: S32.402A Unspecified fracture of left acetabulum, initial encounter for closed fracture (principal); S32.592A Other specified fracture of left pubis, initial encounter for closed fracture; J44.9 Chronic obstructive pulmonary disease, unspecified; A31.0 Pulmonary mycobacterial infection; E87.1 Hypo-osmolality and hyponatremia; D64.9 Anemia, unspecified; S51.011A Laceration without foreign body of right elbow, initial encounter; F17.200 Nicotine dependence, unspecified, uncomplicated; W19.XXXA Unspecified fall, initial encounter; Y92.009 Unspecified place in unspecified non-institutional (private) residence as the place of occurrence of the external cause; S51.012A Laceration without foreign body of left elbow, initial encounter; Z82.49 Family history of ischemic heart disease and other diseases of the circulatory system; Z83.3 Family history of diabetes mellitus; Z66 Do not resuscitate; Z98.42 Cataract extraction status, left eye; Z98.41 Cataract extraction status, right eye; S30.0XXA Contusion of lower back and pelvis, initial encounter
CPT/HCPCS: 36415; 70450; 71010; 72192; 73523; 80048; 80053; 82272; 82607; 82728; 82746; 83540; 83550; 83735; 84238; 84484; 85025; 85610; 85730; 93005; 94640; 94760; A9270-GY; J1644; J7644

== ENCOUNTER 2017-06-17 20:29 | Emergency (ER) | payer MEDICARE, BC ==
--- NOTE | 2017-06-17 21:17 | ED ---
Yakelin Skinner Thomas, scribed for Ian Reynolds MD on 06/17/17 at 2111 . Lower Extremity - HPI Summary HPI Summary: The pt is an 87 y/o M BIB EMS from his custodial s/p a fall when he was being transferred from his wheelchair to the toilet. The patient struck his head and L hip during this fall. He has a recent hip replacement. He denies any pain at this time. PMHx: COPD. PSHx: L hip replacement. SHx: smoking, daily alcohol use, no illicit drug use. FHx: CAD, DM. - History of Current Complaint Chief Complaint: EDGeneral Stated Complaint: FALL Time Seen by Provider: 06/17/17 20:50 Hx Obtained From: Patient, Medical Records Mechanism Of Injury: Fall From A Standing Position - fall whlie transferring from wheelchair to toilet Severity Currently: None Pain Intensity: 0 Pain Scale Used: 0-10 Numeric Associated Signs And Symptoms: Positive: Other - POS: struck his head during fall, landed on L hip; NEG: any pain Aggravating Factor(s): Nothing Alleviating Factor(s): Nothing Related History: Other - Recent L hip replacement - Allergies/Home Medications Allergies/Adverse Reactions: Allergies Allergy/AdvReac Type Severity Reaction Status Date / Time No Known Allergies Allergy Verified 06/12/17 19:15 PMH/Surg Hx/FS Hx/Imm Hx Previously Healthy: No Respiratory History: Reports: Hx Chronic Obstructive Pulmonary Disease (COPD), Other Respiratory Problems/Disorders - COPD,JIGNESH COMPLEX- LEFT LUNG. RT PNEUMONIA 12/2016 GI History: Reports: Other GI Disorders - constipation Sensory History: Reports: Hx Cataracts, Hx Contacts or Glasses, Hx Hearing Aid - left, Hx Hearing Problem - [place] bilaterally Denies: Other Sensory Impairments Opthamlomology History: Reports: Hx Cataracts, Hx Contacts or Glasses Denies: Other Sensory Impairments - Surgical History Surgery Procedure, Year, and Place: CATARACTS REMOVED BILATERAL- [facility] [place]. HERNIA REPAIR- [facility] [place]-2011. APPENDECTOMY-. DEVIATED SEPTUM X 2 Hx Anesthesia Reactions: No - Immunization History Date of Tetanus Vaccine: utd Date of Influenza Vaccine: utd Infectious Disease History: No Infectious Disease History: Denies: Traveled Outside the [place] in Last 30 Days - Family History Known Family History: Positive: Cardiac Disease Negative: Other - neg: anaesthesia reaction - Social History Alcohol Use: Daily Alcohol Amount: 1 GLASS OF WINE WITH DINNER Hx Substance Use: No Substance Use Type: Reports: None Hx Tobacco Use: Yes Smoking Status (MU): Light Every Day Tobacco Smoker Amount Used/How Often: PIPE X 70 YEARS Review of Systems Negative: Fever Positive: Other - POS: struck head and left hip during fall; NEG: any kendrick All Other Systems Reviewed And Are Negative: Yes Physical Exam Triage Information Reviewed: Yes Vital Signs On Initial Exam: Initial Vitals Temp Pulse Resp BP Pulse Ox 97.9 F 72 19 141/55 94 06/17/17 20:43 06/17/17 20:43 06/17/17 20:43 06/17/17 20:43 06/17/17 20:43 Vital Signs Reviewed: Yes Appearance: Positive: Pain Distress - mild discomfort, Thin Skin: Positive: Warm Head/Face: Positive: Normal Head/Face Inspection Eyes: Positive: THA ENT: Positive: Hearing grossly normal Neck: Positive: Supple Respiratory/Lung Sounds: Positive: Breath Sounds Present Cardiovascular: Positive: RRR Abdomen Description: Positive: Nontender, Soft Musculoskeletal: Positive: Strength/ROM Intact - both hips Psychiatric: Positive: Affect/Mood Appropriate - Jonathan Coma Scale Coma Scale Total: 13 Diagnostics - Vital Signs Vital Signs Temp Pulse Resp BP Pulse Ox 06/17/17 20:43 97.9 F 72 19 141/55 94 - Laboratory Lab Statement: Any lab studies that have been ordered have been reviewed, and results considered in the medical decision making process. - Radiology XR Pelvis Xray Interpretation: Positive (See Comments) - 1. PROBABLE NONDISPLACED FRACTURE OF THE LEFT INFERIOR PUBIC RAMUS. 2. OSTEOPENIA. 3. OSTEOARTHRITIS 4. PERIPHERAL ARTERIAL DISEASE. Radiology Interpretation Completed By: Radiologist - CT CT Brain CT Interpretation: No Acute Changes - no acute hemorrhage mass effect or midline shift. Mild nonspecifid periventricular predominant low density throughout the deep white matter is most likely due to mild small vessel ischemic white matter disease. Calcified arteriosclerosis of the cavernous carotids noted. CT Interpretation Completed By: Radiologist Lower Extremity Course/Dx - Course Assessment/Plan: The pt is an 87 y/o M BIB EMS from his custodial s/p a fall when he was being transferred from his wheelchair to the toilet. The patient struck his head and L hip during this fall. He has a recent hip replacement. He denies any pain at this time. PMHx: COPD. PSHx: L hip replacement. SHx: smoking , daily alcohol use, no illicit drug use. FHx: CAD, DM. Pelvis XR reveals 1. PROBABLE NONDISPLACED FRACTURE OF THE LEFT INFERIOR PUBIC RAMUS. 2. OSTEOPENIA. 3. OSTEOARTHRITIS 4. PERIPHERAL ARTERIAL DISEASE. CT Brain reveals no acute hemorrhage mass effect or midline shift. Mild nonspecifid periventricular predominant low density throughout the deep white matter is most likely due to mild small vessel ischemic white matter disease. Calcified arteriosclerosis of the cavernous carotids noted. ED physician has reviewed this radiology report and agrees. Patient is diagnosed with a fall. Patient will be discharged home with follow up by PCP. Patient is agreeable to this plan. - Diagnoses Provider Diagnoses: Fall Discharge - Discharge Plan Condition: Stable Disposition: HOME Patient Education Materials: Fall Prevention for Older Adults (ED) Referrals: Rosi Montiel MD [Primary Care Provider] - 3 Days The documentation as recorded by the Yakelin harding Thomas accurately reflects the service I personally performed and the decisions made by , Ian Reynolds MD.
--- NOTE | 2017-06-17 21:35 | RAD ---
HISTORY: Fall, left hip pain COMPARISONS: June 12, 2017 VIEWS: 1, Single frontal view of the pelvis FINDINGS: BONE DENSITY: There is diffuse osteopenia. BONES: There is a linear lucency suggestive of a nondisplaced fracture of the inferior pubic ramus JOINTS: There is osteoarthritis of the hips and SI joints ALIGNMENT: There is no dislocation. SOFT TISSUES: There is peripheral arterial calcification OTHER FINDINGS: None. IMPRESSION: 1. PROBABLE NONDISPLACED FRACTURE OF THE LEFT INFERIOR PUBIC RAMUS. 2. OSTEOPENIA. 3. OSTEOARTHRITIS 4. PERIPHERAL ARTERIAL DISEASE
[2017-06-17 22:12] VITALS: BP 154/50
--- NOTE | 2017-06-18 07:31 | RAD ---
INDICATION: Trauma to left head after a fall COMPARISON: Similar CT examination June 12, 2017 TECHNIQUE: Contiguous axial sections of the brain were obtained from the skull base to the vertex without contrast. FINDINGS: The ventricles, cisterns and sulci stable and symmetric involutional changes. Similar to the prior head CT there is periventricular and subcortical white matter hypoattenuation most consistent with chronic microvascular disease. The doan-white matter differentiation is adequately maintained and there is no sulcal effacement. No significant focal abnormality or mass effect is present. There is no evidence for intracranial hemorrhage. No significant focal osseous abnormality is present. The visualized portion of the paranasal sinuses and mastoid air cells appear clear. IMPRESSION: No CT evidence of acute traumatic intracranial injury.
== END 2017-06-17 23:55 | disposition home or self-care (01) ==
LOC: ED 20:29
DX: Z91.81 History of falling (principal); M25.552 Pain in left hip; F17.210 Nicotine dependence, cigarettes, uncomplicated
CPT/HCPCS: 70450; 72170; 99283